=== PATIENT | male | born 1940 | race Caucasian/White ===

== ENCOUNTER 2017-05-18 09:04 | Emergency (ER) | payer OTHER ==
[~2017-05-18] VITALS: Ht 172.7 cm; Wt 52.2 kg
[2017-05-18 10:05] LABS: BASOPHIL % 0.3 % (0-2); PLATELET COUNT 174 x10^3mcL (130-400)
[2017-05-18 10:15] LABS: CALCIUM 8.9 mg/dL (8.5-10.1); CARBON DIOXIDE 24.7 mmol/L (21-32); CHLORIDE SERUM 107 mmol/L (98-107); CREATININE SERUM 1.2 mg/dL (0.7-1.3); GLUCOSE SERUM 190 mg/dL (74-106); POTASSIUM SERUM 4.5 mmol/L (3.5-5.1); SODIUM SERUM 142 mmol/L (136-145)
[2017-05-18 10:17] LABS: RED CELL DISTRIBUTION WIDTH 14.8 % (11.5-14.5)
[2017-05-18 10:28] LABS: ALKALINE PHOSPHATASE 106 U/L (46-116); ALT/SGPT 19 U/L (16-63); AST/SGOT 16 U/L (15-37); BILIRUBIN TOTAL 0.35 mg/dL (0.20-1.00); CHOLESTEROL 151 mg/dL (<200); HDL CHOLESTEROL 56 mg/dL (40-60); T4(THYROXINE) 5.7 ug/dL (4.7-13.3); TOTAL PROTEIN, SERUM 6.4 g/dL (6.4-8.2)
[2017-05-18 12:45] VITALS: BP 128/54
== END 2017-05-18 12:48 ==
LOC: ED 09:04
PROVIDERS: Emergency Medicine
DX: R55 Syncope and collapse (principal); R73.9 Hyperglycemia, unspecified; E86.0 Dehydration; F32.9 Major depressive disorder, single episode, unspecified; I10 Essential (primary) hypertension; K21.9 Gastro-esophageal reflux disease without esophagitis; Z88.0 Allergy status to penicillin; Z88.5 Allergy status to narcotic agent; Z79.899 Other long term (current) drug therapy
CPT/HCPCS: 83880; J7030; Q0092